=== PATIENT | female | born 1960 | race Caucasian/White ===

== ENCOUNTER 2017-03-12 05:55 | Emergency (ER) | payer BC ==
--- NOTE | 2017-03-12 07:15 | PDOC ---
Attending Attestation - Resident Resident Name: Loco Holguin - HPI HPI: 03/12/17 10:07 Pt presents to the ED complaining of palpitations that began when she woke up this morning. Denies chest pain or shortness of breath. 03/12/17 10:10 - Physicial Exam PE: 03/12/17 10:10 Agree with resident exam. PAteint is comfortable. regular rate and rhythm with no murmurs on my cardiac exam. - Medical Decision Making 03/12/17 10:10 History of previous similar symptoms that spontaneously resolved in the past. EKG shows normal sinus rhythm without tachycardia or any other changes. Labs checked to rule out electrolyte disturbance and are negative. Case discussed with gabriel Bee's elastic assembler who agrees with sending her home.
--- NOTE | 2017-03-12 07:16 | PDOC ---
History of Present Illness - General Stated Complaint: PALPATATIONS Time Seen by Provider: 03/12/17 06:54 - History of Present Illness Initial Comments: 03/12/17 09:43 The patient is a 56 year old female with a history of HTN, Lymphedema who presents for evaluation of palpitations. The patient reports that she occasionally gets a sensation of a racing heart when going to sleep, but resolves by the time she wakes up. She states that she had that sensation yesterday evening, however continued have the sensation of a racing heart when waking up earlier this morning prompting her presentation to the ED for evaluation. She denies fevers, chills, SOB, chest pain, abdominal pain, nausea , vomiting, or changes with urination or bowel movements. Past History - Past Medical History Allergies/Adverse Reactions: Allergies Allergy/AdvReac Type Severity Reaction Status Date / Time Penicillins Allergy Mild Rash Verified 12/09/13 04:45 Home Medications: Ambulatory Orders Atorvastatin Ca [Lipitor] 10 mg PO HS 06/03/11 Benazepril/Hydrochlorothiazide [Lotensin Hct 20-12.5 Tablet] 1 each PO DAILY Metoprolol Succinate 25 mg PO DAILY 03/12/17 Anemia: No Asthma: Yes (H/O BRONCHITIS) Cancer: No Cardiac Disorders: No CVA: No COPD: No CHF: No Dementia: No Diabetes: No GI Disorders: Yes (HX.PEPTIC ULCER) Disorders: No HTN: Yes Hypercholesterolemia: Yes Liver Disease: No Seizures: No Thyroid Disease: No - Surgical History Abdominal Surgery: Yes Appendectomy: No Cardiac Surgery: No Cholecystectomy: Yes Lung Surgery: No Neurologic Surgery: No Orthopedic Surgery: No - Suicide/Smoking/Psychosocial Hx Smoking History: Never smoked Have you smoked in the past 12 months: No If you are a former smoker, when did you quit?: 1978 Hx Alcohol Use: No Drug/Substance Use Hx: No Substance Use Type: None Hx Substance Use Treatment: No Review of Systems - Review of Systems Comments:: 03/12/17 09:45 Constitutional: No fevers, chills, fatigue, malaise HEENT: No Rhinorrhea, nasal congestion, Cardiovascular: Palpitations. No chest pain, syncope, lightheadedness Respiratory: No Cough, SOB, Hemoptysis, Gastrointestinal: No Abdominal pain, Nausea, Vomiting, Constipation, Diarrhea, Melena Genitourinary: No Dysuria, Frequency, Urgency, Hesitancy, Hematuria, Flank pain Musculoskeletal: No Myalgia, arthralgia Skin: No rashes, bruising, pallor Neurologic: No Headache, Dizziness, Numbness, Weakness, or Tingling Psychiatric: No Hallucinations. No SI or HI *Physical Exam - Physical Exam Comments: 03/12/17 09:47 General Appearance: Nourished. No Apparent Distress HEENT: EOMI, ROBERTO. No Pharyngeal Erythema, Tonsillar Exudate, Tonsillar Erythema Neck: No Cervical Lymphadenopathy Respiratory/Chest: Lungs Clear, Normal Breath Sounds. No Crackles, Rales, Rhonchi, Wheezing Cardiovascular: Regular Rhythm, Regular Rate. No Murmur, Gallops, Rubs Gastrointestinal/Abdominal: Normal Bowel Sounds, Soft. No Guarding, Rebound, Tenderness Musculoskeletal: No CVA Tenderness Extremity: Normal Capillary Refill Integumentary: Normal Color, Dry, Warm Neurologic: Fully Oriented, Alert, Normal Mood/Affect, Normal Response, ED Treatment Course - LABORATORY CBC & Chemistry Diagram: 03/12/17 08:00 03/12/17 08:00 Medical Decision Making - Medical Decision Making 03/12/17 07:48 The patient is a 56 year old female with a history of HTN, Lymphedema who presents for evaluation of palpitations. Differential includes but is not limited to: Arrhythmia, ACS, thyroid disease, anxiety, infectious, metabolic derangement. Given the patient's lack of symptoms here in the ED and normal physical exam, it is likely the patient's symptoms are due to anxiety. However , we will obtain a cbc, cmp, troponin, tsh, and ekg to evaluate for other etiologies. We will continue to monitor and reassess. 03/12/17 09:50 CBC, cmp, troponin are unremarkable. EKG is unremarkable. The patient's symptoms are likely due to anxiety. We discussed the cause with Dr. Elizondo who the patient had spoken to earlier this morning prior to presentation who is also comfortable with discharge and outpatient follow up. We are comfortable discharging the patient home at this time with outpatient cardiology and pcp follow up. We discussed the results and the plan with the patient who voiced understanding and is agreeable with the plan. *DC/Admit/Observation/Transfer Diagnosis at time of Disposition: Palpitations - Discharge Dispostion Disposition: HOME Condition at time of disposition: Improved Admit: No - Referrals Referrals: Hina Winchester MD [Primary Care Provider] - Ann-Marie Cai MD [Staff Physician] - - Patient Instructions Printed Discharge Instructions: DI for Palpitations Additional Instructions: Please return to the ER if you experience concerning or worsening symptoms including chest pain or difficulty breathing. You were seen in the ER for palpitations. Your lab results and EKG tracing were normal here in the ER. Please call to schedule a follow up appointment with your bearing grinder within 1 week to discuss your ER visit. Please call to schedule a follow up appointment with your primary care provider within 1 week to discuss your ER visit as well. - Post Discharge Activity
[2017-03-12 08:05] VITALS: TEMP 98.6; BMI 30.9
[2017-03-12 08:37] LABS: EOS % 3.6 % (0-4.5); MCH 30.1 pg (25.7-33.7); MCHC 33.1 g/dl (32.0-36.0); MEAN CELL VOLUME 90.8 fl (80-96); MEAN PLT VOLUME 8.4 fl (7.5-11.1); PLATELET COUNT 200 K/MM3 (134-434); RDW 12.9 % (11.6-15.6); WHITE BLOOD COUNT 5.9 K/mm3 (4.0-10.0)
[2017-03-12 08:56] LABS: ALBUMIN 3.6 g/dl (3.4-5.0); ANION GAP 11 (8-16); CALCIUM 8.9 mg/dL (8.5-10.1); CO2 27 mmol/L (21-32); CREATININE 0.8 mg/dL (0.55-1.02); GLUCOSE,RANDOM 103 mg/dL (74-106); SGOT/AST 34 U/L (15-37); SGPT/ALT 57 U/L (12-78)
[2017-03-12 09:00] LABS: ALK PHOS 94 U/L (45-117); BILIRUBIN,TOTAL 0.6 mg/dL (0.2-1.0); CPK 87 IU/L (26-192); TROPONIN I < 0.02 ng/ml (0.00-0.05)
--- NOTE | 2017-03-12 09:49 | CON.CARD ---
Consult Consult Specialty:: Cardiology Referred by:: Emergency Medicine Reason for Consultation:: Non-exertional palpitations - History of Present Illness Chief Complaint: Palpitations History of Present Illness: 56 yo female h/o mitral valve prolapse, chest pain with negative MPI, HTN/HCVD, hyperlipidemia last seen in office 02/23/2017 presented to ER with non- exertional palpitations without associated sxs of chest pain, dyspnea, near or true syncope, orthopnea, PND or LE edema, on ambulatory BP monitor, tachycardia not documented. In ER, EKG shows SR, no events on telemetry, palpitations have since resolved. - Past Medical History ...LMP: 03/04/12 - Alcohol/Substance Use Hx Alcohol Use: No - Smoking History Smoking history: Never smoked Have you smoked in the past 12 months: No If you are a former smoker, when did you quit?: 1979 Home Medications - Allergies Allergies/Adverse Reactions: Allergies Allergy/AdvReac Type Severity Reaction Status Date / Time Penicillins Allergy Mild Rash Verified 12/09/13 04:45 - Home Medications Home Medications: Ambulatory Orders Atorvastatin Ca [Lipitor] 10 mg PO HS 06/03/11 Benazepril/Hydrochlorothiazide [Lotensin Hct 20-12.5 Tablet] 1 each PO DAILY Metoprolol Succinate 25 mg PO DAILY 03/12/17 Review of Systems - Review of Systems Cardiovascular: reports: Palpitations Vital Signs: Vital Signs Temperature 98.6 F 03/12/17 08:00 Pulse Rate 79 03/12/17 08:00 Respiratory Rate 18 03/12/17 08:00 Blood Pressure 120/69 03/12/17 08:00 O2 Sat by Pulse Oximetry (%) 98 03/12/17 08:00 Constitutional: Yes: No Distress, Calm Neck: Yes: Supple Respiratory: Yes: Regular, CTA Bilaterally Gastrointestinal: Yes: Normal Bowel Sounds, Soft, Abdomen, Obese Cardiovascular: Yes: Regular Rate and Rhythm JVD: No Carotid Bruit: No Heart Sounds: Yes: S1, S2 Edema: No - Other Data Labs, Other Data: CBC, BMP 03/12/17 08:00 03/12/17 08:00 Troponin, BNP 03/12/17 08:00 Troponin I < 0.02 Troponin, BNP 03/12/17 08:00 Troponin I < 0.02 NSR @ 72 Problem List - Problems (1) Hypertensive cardiovascular disease Code(s): I11.9 - HYPERTENSIVE HEART DISEASE WITHOUT HEART FAILURE Qualifiers: Heart failure presence: without heart failure Qualified Code(s): I11.9 - Hypertensive heart disease without heart failure (2) Hyperlipidemia Code(s): E78.5 - HYPERLIPIDEMIA, UNSPECIFIED Qualifiers: Hyperlipidemia type: pure hypercholesterolemia Qualified Code(s): E78.00 - Pure hypercholesterolemia, unspecified; E78.0 - Pure hypercholesterolemia (3) Mitral valve prolapse Code(s): I34.1 - NONRHEUMATIC MITRAL (VALVE) PROLAPSE (4) Palpitations Code(s): R00.2 - PALPITATIONS (5) Chest pain Code(s): R07.9 - CHEST PAIN, UNSPECIFIED Qualifiers: Chest pain type: other chest pain Qualified Code(s): R07.89 - Other chest pain; R07.8 - Other chest pain Assessment/Plan 03/07/2016 Redendant MV leaflets with mild MV prolapse, normal LV size and fxn, LVEF 66%, mild MR, NV with trace TR 1. Non-exertional palpitations likely referable to mitral valve prolapse syndrome with need to exclude sustained arrhythmia 2. HTN/HCVD with labile blood pressures 3. Chest pain syndrome with negative MPI for ischemia 4. Hyperlipidemia P:1 Patient hesitant to increase Toprol XL from 12.5 to 25 qd, advised to take extra dose when palpititions recur 2. Continue Lotensin/HCT 20/12.5 qd and Lipitor 10 qod with ambulatory BP monitoring 3. May be d/jerod from ER with f/u with Dr. Ann-Marie Cai for holter placement and review 4. Reassured and counselled patient, thank you for consultative opportunity
[2017-03-12 10:18] VITALS: BP 113/78; PULSE 72
--- NOTE | 2017-03-12 12:42 | EKG ---
Test Reason : Blood Pressure : / mmHG Vent. Rate : 072 BPM Atrial Rate : 072 BPM P-R Int : 156 ms QRS Dur : 080 ms QT Int : 404 ms P-R-T Axes : 038 042 022 degrees QTc Int : 442 ms NORMAL SINUS RHYTHM LOW VOLTAGE QRS CANNOT RULE OUT ANTERIOR INFARCT , AGE UNDETERMINED ABNORMAL ECG WHEN COMPARED WITH ECG OF 09-DEC-2013 04:42, T WAVE INVERSION NOW EVIDENT IN ANTERIOR LEADS Confirmed by FELICIANO ESCOBAR, VINNIE ([id number]) on 03/12/2017 12:42:15 PM Referred By: Confirmed By:VINNIE WIGGINS MD
== END 2017-03-12 10:15 | disposition home or self-care (01) ==
LOC: JER 05:55
DX: R00.2 Palpitations (principal); I11.9 Hypertensive heart disease without heart failure; I34.1 Nonrheumatic mitral (valve) prolapse; E78.5 Hyperlipidemia, unspecified; Z87.11 Personal history of peptic ulcer disease; Z87.09 Personal history of other diseases of the respiratory system
CPT/HCPCS: 36415; 80053; 82550; 84443; 84484; 85025; 93005; 93010; 99283-25

== ENCOUNTER 2019-12-27 09:37 | Emergency (ER) | payer BC ==
--- NOTE | 2019-12-27 10:32 | TELE ---
HPI Do you have fever,cough or shortness of breath?: No - General Reason For Visit: VIRTUAL VISIT Past History - Travel History Traveled outside of the country in the last 30 days: No Close contact w/someone who was outside of country & ill: No - Medical History Allergies/Adverse Reactions: Allergies Allergy/AdvReac Type Severity Reaction Status Date / Time Penicillins Allergy Mild Rash Verified 12/09/13 04:45 Home Medications: Ambulatory Orders Atorvastatin Ca [Lipitor] 10 mg PO HS 06/03/11 Benazepril/Hydrochlorothiazide [Lotensin Hct 20-12.5 Tablet] 1 each PO DAILY 04/15/13 Metoprolol Succinate 25 mg PO DAILY 03/12/17 Anemia: No Asthma: Yes (H/O BRONCHITIS) Cancer: No Cardiac Disorders: No CVA: No COPD: No CHF: No Dementia: No Diabetes: No GI Disorders: Yes (HX.PEPTIC ULCER) Disorders: No HTN: Yes Hypercholesterolemia: Yes Liver Disease: No Seizures: No Thyroid Disease: No - Surgical History Abdominal Surgery: Yes Appendectomy: No Cardiac Surgery: No Cholecystectomy: Yes Lung Surgery: No Neurologic Surgery: No Orthopedic Surgery: No - Immunization History Td Vaccination: No TDAP Vaccination: No Immunization Up to Date: No - Psycho-Social/Smoking History Smoking History: Never smoked Have you smoked in the past 12 months: No If you are a former smoker, when did you quit?: 1978 Review of Systems - Review of Systems Able to Perform ROS?: Yes Comments:: 12/27/19 10:30 CONSTITUTIONAL: Absent: fever, chills, diaphoresis, generalized weakness, malaise, loss of appetite HEENT: Absent: rhinorrhea, nasal congestion, throat pain, throat swelling, difficulty swallowing, mouth swelling, ear pain, eye pain, visual Changes CARDIOVASCULAR: Absent: chest pain, loss of consciousness, palpitations, irregular heart rate, peripheral edema RESPIRATORY: Absent: cough, shortness of breath, dyspnea with exertion, orthopnea, wheezing, stridor, hemoptysis GASTROINTESTINAL: Absent: abdominal pain, abdominal distension, nausea, vomiting, diarrhea, constipation, melena, hematochezia SKIN: Absent: rash, itching, pallor NEUROLOGIC: Absent: headache, focal weakness or paresthesias, dizziness, unsteady gait, seizure, mental status changes, bladder or bowel incontinence PSYCHIATRIC: Absent: anxiety, depression, suicidal or homicidal ideation, hallucinations. Limited Turkmen proficient: No *Physical Exam - Physical Exam 12/27/19 10:30 GENERAL: Well developed, well nourished. Awake and alert. No acute distress. HEENT: Normocephalic, atraumatic. PERRLA, EOMI. NECK: Supple. Full ROM. PULMONARY: No evidence of respiratory distress. EXTREMITIES: No cyanosis. SKIN: Warm and dry. Normal capillary refill. No rashes. No jaundice. NEUROLOGICAL: Alert, awake, appropriate. PSYCHIATRIC: Cooperative. Good eye contact. Appropriate mood and affect. - Medical Decision Making 12/27/19 10:30 Patient is a 59-year-old female past medical history of hypertension, presents to virtual urgent care for a COVID swab. She states that her had a po sitive exposure at work where 3 of his coworkers have recently tested positive for COVID-19. She was told that she needs to have a COVID test done prior to returning to work. She states her has not had any symptoms and is in his usual state of health. A/P: COVID swab On virtual visit, no acute distress. We will order COVID swab and sent to [facility]. Isolation precautions given. Discharge Diagnosis at time of Disposition: Counseled about COVID-19 virus infection - Referrals Follow-up Referral(s): Hina Winchester MD [Primary Care Provider] - - Patient Instructions
== END 2019-12-27 10:34 | disposition home or self-care (01) ==
LOC: JVIRT 09:37
DX: Z03.818 Encounter for observation for suspected exposure to other biological agents ruled out (principal)
CPT/HCPCS: C9803; Q3014-GT; U0003

== ENCOUNTER 2021-05-17 17:00 | Emergency (ER) | payer BC ==
[2021-05-17 17:32] VITALS: BP 150/82; PULSE 88; TEMP 98; BMI 31.8
== END 2021-05-17 18:05 | disposition home or self-care (01) ==
LOC: FER 17:00
DX: S69.92XA Unspecified injury of left wrist, hand and finger(s), initial encounter (principal)
CPT/HCPCS: 73110-TC-LT-FY; 73130-TC-LT-FY; 73564-TC-RT-FY; 99284-25

== ENCOUNTER 2023-12-02 09:28 | Emergency (ER) | payer BC ==
[2023-12-02 09:44] VITALS: BP 119/74; PULSE 75; RESP 16; TEMP 97.9; BMI 35.4
== END 2023-12-02 10:20 | disposition home or self-care (01) ==
LOC: FER 09:28
DX: S93.501A Unspecified sprain of right great toe, initial encounter (principal); S93.504A Unspecified sprain of right lesser toe(s), initial encounter; W01.0XXA Fall on same level from slipping, tripping and stumbling without subsequent striking against object, initial encounter
CPT/HCPCS: 73630-TC-RT-FY; 99283-25

== ENCOUNTER 2024-03-30 04:13 | Day surgery (SDC) | payer BC ==
[2024-03-30] MEDS ORDERED: COCAINE HCL 4% TOPICAL SOLUTION 4 ML BOTTLE TP ONE ×2 (07:34→07:40)
[2024-03-30] MEDS ORDERED: SUCCINYLCHOLINE CHLORIDE 200 MG/10 ML SYRINGE ONE ×3 (07:40→08:24)
[2024-03-30] MEDS ORDERED: LIDOCAINE 1%/EPI 1:100000 (20 ML MULTI DOSE VIAL) ONE (07:40)
[2024-03-30] MEDS ORDERED: PROPOFOL 20 ML ONE ×2 (07:41→08:48)
[2024-03-30] MEDS ORDERED: MIDAZOLAM HCL 2 MG/2 ML SINGLE DOSE VIAL ONE (08:14)
[2024-03-30] MEDS ORDERED: ROCURONIUM BROMIDE 50 MG/5 ML SYRINGE ONE (08:31)
[2024-03-30] MEDS ORDERED: ONDANSETRON 4 MG/2 ML VIAL ONE (08:32)
[2024-03-30] MEDS ORDERED: DEXAMETHASONE SOD PHOSPHATE 4 MG/1 ML VIAL ONE (08:32)
[2024-03-30] MEDS: LIDOCAINE 1%/EPI 1:100000 (20 ML MULTI DOSE VIAL) INF ONE ×2 (08:37)
[2024-03-30] MEDS: COCAINE HCL 4% TOPICAL SOLUTION 4 ML BOTTLE TP ONE ×2 (08:38)
[2024-03-30] MEDS ORDERED: SUGAMMADEX SODIUM 200 MG/2 ML VIAL ONE ×2 (08:50→09:03)
[2024-03-30] MEDS: BACITRACIN ZINC 15 GM TUBE TOPICAL OINTMENT TP ONE ×2 (08:58)
[2024-03-30] MEDS ORDERED: oxyCODONE HCL 5 MG TABLET PO PRN (09:16)
[2024-03-30] MEDS ORDERED: LACTATED RINGERS SOLUTION 1,000 ML IV SCH (09:30)
[2024-03-30] MEDS ORDERED: ACETAMINOPHEN 325 MG TABLET (FP) ONE (10:56)
[2024-03-30] MEDS: ACETAMINOPHEN 325 MG TABLET (FP) PO PRN (10:59)
[2024-03-30 12:01] VITALS: BP 120/61; PULSE 86; RESP 18; TEMP 97.8
== END 2024-03-30 12:30 | disposition home or self-care (01) ==
LOC: JASU-SURG 04:13
PROVIDERS: ATTEND Otolaryngology
PROC: 09BK8ZX Excision of Nasal Mucosa and Soft Tissue, Via Natural or Artificial Opening Endoscopic, Diagnostic (ICD-10-PCS; principal; 2024-03-30 08:00)
DX: D14.0 Benign neoplasm of middle ear, nasal cavity and accessory sinuses (principal)
CPT/HCPCS: 94760